=== PATIENT | female | born 1965 | race Hispanic/Latino ===

== ENCOUNTER 2025-02-07 14:31 | Emergency (ER) | payer SELFPAY ==
[2025-02-07 15:29] LABS: Absolute Lymphocytes (CBC) 1.4 K/uL (0.7-4.9); Hematocrit 37.9 % (36.0-45.0); Hemoglobin 13.0 g/dL (12.0-15.0); MCH 28.6 pg (27.0-35.0); MCHC 34.3 g/dL (32.0-36.0); MCV 83.5 fL (80-100); MPV 8.4 fL (7.6-11.3); Nucleated RBC Absolute Count 0.0 (0-0); Nucleated Red Blood Cells % 0.0 % (0-0); RBC Red Blood Cell Count 4.54 M/uL (3.86-4.86); White Blood Count 5.70 thou/uL (4.3-10.9)
[2025-02-07 15:45] LABS: PT Prothrombin Time 12.5 SECONDS (10-13.0); Protime INR 1.11
[2025-02-07 15:57] LABS: ALT/SGPT 28 U/L (13-56); AST/SGOT 17 U/L (15-37); Albumin 3.4 g/dL (3.4-5.0); Albumin/Globulin Ratio 1.0 (1.1-1.8); Alkaline Phosphatase 117 U/L (45-117); Anion Gap 8.8 mEq/L (5.0-15.0); BUN Blood Urea Nitrogen 11 mg/dL (7-18); Globulin 3.4 g/dL (2.3-3.5); Glucose Level 110 mg/dL (74-106); Magnesium 1.7 mg/dL (1.6-2.4); NT PRO-BNP 57 pg/mL (<125); Potassium 3.8 mEq/L (3.5-5.1)
[2025-02-07 16:19] LABS: Bilirubin Indirect, Calculated 0.0 mg/dL (0.2-0.8); Troponin High Sensitivity < 3.0 pg/mL (<58.9)
--- NOTE | 2025-02-07 16:41 | RAD REPORT ---
EXAM: CT brain without contrast HISTORY: seizure;Syncope COMPARISON: None TECHNIQUE: Multiple contiguous axial images were obtained and a CT of the brain without contrast. Sag ittal and coronal reformats were performed. FINDINGS: No evidence of hydrocephalus, intracranial hemorrhage, or extra-axial fluid collection. Numerous juxtacortical foci of calcification and a single focus of calcification along the right ant erior margin of the medulla. No evidence of acute territorial infarct. Sequelae of sandra hole craniotomy along the right frontal region anteriorly with underlying mild focal encephalomalacia. The calvarium is intact. The visualized paranasal sinuses and mastoid air cells are essentially clear . IMPRESSION: No evidence of acute intracranial abnormality. Numerous calcific foci predominantly in the juxtacortical regions, could reflect sequelae of remote i nfectious process such as neurocysticercosis. No focal edema or mass effect. EXAM: CT of the cervical spine without contrast HISTORY: seizure;Syncope COMPARISON: None TECHNIQUE: Multiple contiguous axial images were obtained in a CT of the cervical spine without contr ast. Sagittal and coronal reformats were performed. FINDINGS: The vertebral bodies demonstrate normal height and alignment. No evidence of acute fracture or subluxation.. No degenerative changes are present. No prevertebral soft tissue swelling is seen. The posterior facets are well aligned. Normal alignment of the skull base with the cervical spine is seen. The lung apices are unremarkable. IMPRESSION: No evidence of acute osseous abnormality of the cervical spine.
--- NOTE | 2025-02-07 16:42 | RAD REPORT ---
EXAMINATION: ONE VIEW CHEST XR CLINICAL INDICATION: Female, 59 years old.,syncope TECHNIQUE: Frontal chest projection is submitted. Examination is limited by patient positioning and t echnique. COMPARISON: No prior exam. FINDINGS: The lungs are well inflated and clear. No pneumothorax or sizable effusion. The heart is normal in s ize. Mediastinal contours are unremarkable. IMPRESSION: No acute intrathoracic abnormalities.
[2025-02-07] MEDS ORDERED: LORAZEPAM 1 MG TABLET ONE (17:23)
--- NOTE | 2025-02-07 17:23 | EDPHYS ---
Physician Documentation [facility] Name: Adelaida Vincent Age: 59 yrs Sex: Female : 1965 Arrival Date: 02/07/2025 Time: 14:31 Bed 8 Private MD: ED Physician Zheng Bearden HPI: 02/07 14:45 This 59 yrs old Female presents to ER via EMS with complaints of Seizure. cp Historical: - Allergies: 14:39 No Known Allergies; me1 - PMHx: 14:39 Seizure; me1 - PSHx: 14:39 brain surgery; me1 - Immunization history:: Adult Immunizations up to date. - Infectious Disease History:: Denies. - Social history:: Smoking status: Patient denies any tobacco usage or history of. ROS: 14:50 Constitutional: Negative for body aches, chills, fever, poor PO intake, cp 14:50 Neuro: Positive for history of seizure, cp Exam: 15:33 ECG was reviewed by the Attending Physician. cp Vital Signs: 14:36 BP 141 / 81; Pulse 80; Resp 18; Temp 97.5; Pulse Ox 98% ; Weight 77.5 kg; Height 5 ft. me1 3 in. ; Pain 7/10; 15:00 BP 140 / 80; Pulse 69; Resp 16; Pulse Ox 98% ; me1 16:00 BP 138 / 81; Pulse 64; Resp 17; Pulse Ox 98% ; me1 17:00 BP 140 / 82; Pulse 66; Resp 17; Pulse Ox 98% ; me1 17:30 BP 140 / 82; Pulse 66; Resp 17; Temp 98.2; Pulse Ox 99% ; me1 14:36 Body Mass Index 30.27 (77.50 kg, 160.02 cm) me1 14:36 Pain Scale: Adult me1 MDM: 14:38 Medical Screening Exam initiated cp 02/07 14:44 Order name: Basic Metabolic Panel; Complete Time: 16:51 cp 02/07 16:51 Interpretation: Normal except: CL 109; GLUC 110; GFR 76; CA 8.4. cp 02/07 14:44 Order name: CBC with Diff; Complete Time: 16:51 cp 02/07 14:44 Order name: LFT's; Complete Time: 16:51 cp 02/07 17:14 Interpretation: Normal except: IBILI, CALC 0.0; A/G 1.0. cp 02/07 14:44 Order name: Magnesium; Complete Time: 16:51 cp 02/07 14:44 Order name: NT PRO-BNP; Complete Time: 16:51 cp 02/07 14:44 Order name: PT-INR; Complete Time: 16:51 cp 02/07 14:44 Order name: Troponin HS; Complete Time: 16:51 cp 02/07 14:44 Order name: UA Rfx Omhan Cult if indicated cp 02/07 14:44 Order name: XRAY Chest (1 view); Complete Time: 16:51 cp 02/07 14:44 Order name: CT Head C Spine; Complete Time: 16:51 cp 02/07 17:15 Interpretation: Reviewed report. 02/07 14:44 Order name: EKG; Complete Time: 14:45 cp 02/07 14:44 Order name: Cardiac monitoring; Complete Time: 15:33 cp 02/07 14:44 Order name: EKG - Nurse/Tech; Complete Time: 15:33 cp 02/07 14:44 Order name: IV Saline Lock; Complete Time: 15:23 cp 02/07 14:44 Order name: Labs collected and sent; Complete Time: 15:23 cp 02/07 14:44 Order name: O2 Per Protocol; Complete Time: 14:58 cp 02/07 14:44 Order name: O2 Sat Monitoring; Complete Time: 14:58 cp EC:33 Rate is 70 beats/min. Rhythm is regular. [place] interval is normal. QRS interval is normal. cp QT interval is normal. T waves are Inverted in lead aVR. Interpreted by me. Reviewed by me. Administered Medications: 17:28 Drug: LORazepam PO 1 mg PO once Route: PO; me1 17:29 Follow up: Response: No adverse reaction me1 Disposition: 02/08 07:56 Co-signature as Attending Physician, Zheng Bearden MD I agree with the assessment and consuelo plan of care. Disposition Summary: 02/07/25 17:23 Discharge Ordered Notes: Location: Home cp Problem: an acute exacerbation cp Symptoms: have improved cp Condition: Stable cp Diagnosis - Other seizures cp Followup: cp - With: Private Physician - When: 2 - 3 days - Reason: Worsening of condition Discharge Instructions: - Discharge Summary Sheet cp - Seizure, Adult cp Forms: - Medication Reconciliation Form cp - Antibiotic Education cp - Prescription Opioid Use cp - Patient Portal Instructions cp - Leadership Thank You Letter cp Signatures: Dispatcher [employer] Zheng Braxton MD MD cha Page, Corey, PA-C PA-C cp Eddleman, Michelle, RN RN me1 Corrections: (The following items were deleted from the chart) 02/07 17:22 17:22 This 59 yrs old Female presents to ER via EMS with complaints of cp Seizure. cp
--- NOTE | 2025-02-07 17:23 | ER ---
Nurse's Notes [facility] Name: Adelaida Vincent Age: 59 yrs Sex: Female : 1965 Arrival Date: 02/07/2025 Time: 14:31 Bed 8 Private MD: Diagnosis: Other seizures Presentation: 02/07 14:36 Chief complaint: EMS states: toned out for syncopal episode while shopping, hit the me1 back of her head on the floor, possible seizure. Does have a hx of seizures and brain surgery for "water on the brain" per . BGL 107, NSR. Takes Keppra 1000mg. Coronavirus screen: Vaccine status: Patient reports being unvaccinated. Ebola Screen: No symptoms or risks identified at this time. Initial Sepsis Screen: Does the patient meet any 2 criteria? No. Patient's initial sepsis screen is negative. Does the patient have a suspected source of infection? No. Patient's initial sepsis screen is negative. Risk Assessment: Do you want to hurt yourself or someone else? Patient reports no desire to harm self or others. Onset of symptoms was February 07, 2025 at 14:00. 14:36 Method Of Arrival: EMS: [facility] mt1 14:36 Acuity: JIL 3 me1 Triage Assessment: 14:39 General: Appears in no apparent distress. uncomfortable, well groomed, well developed, me1 well nourished, Behavior is calm, cooperative, appropriate for age. Pain: Complains of pain in back of head Pain does not radiate. Pain currently is 7 out of 10 on a pain scale. Quality of pain is described as aching, Pain began suddenly, Is continuous. EENT: No signs and/or symptoms were reported regarding the EENT system. Neuro: Level of Consciousness is awake, alert, obeys commands, Oriented to person, place, time, situation, Appropriate for age. Neuro: Reports a syncopal episode Seizure activity reported prior to arrival. Cardiovascular: Patient's skin is warm and dry. Respiratory: Respiratory: Airway is patent Respiratory effort is even, unlabored, Respiratory pattern is regular, symmetrical. GI: No signs and/or symptoms were reported involving the gastrointestinal system. : No signs and/or symptoms were reported regarding the genitourinary system. Derm: Skin is intact, is healthy with good turgor, Skin is normal. Musculoskeletal: Circulation, motion, and sensation intact. Range of motion: intact in all extremities. Historical: - Allergies: 14:39 No Known Allergies; me1 - PMHx: 14:39 Seizure; me1 - PSHx: 14:39 brain surgery; me1 - Immunization history:: Adult Immunizations up to date. - Infectious Disease History:: Denies. - Social history:: Smoking status: Patient denies any tobacco usage or history of. Screenin:41 [facility] ED Fall Risk Assessment (Adult) History of falling in the last 3 months, me1 including since admission Yes- physiologic fall (2 pts) Confusion or Disorientation No (0 pts) Intoxicated or Sedated No (0 pts) Impaired Gait No (0 pts) Mobility Assist Device Used No (0 pt) Altered Elimination No (0 pt) Score/Fall Risk Level 0 - 2 = Low Risk Maintained a safe environment, Provided non-skid footwear, Hourly rounding (assess needs \\T\\ fall precautionary measures) done. Abuse screen: Denies threats or abuse. Nutritional screening: No deficits noted. Tuberculosis screening: No symptoms or risk factors identified. Assessment: 14:41 General: See triage assessment. me1 Vital Signs: 14:36 BP 141 / 81; Pulse 80; Resp 18; Temp 97.5; Pulse Ox 98% ; Weight 77.5 kg; Height 5 ft. me1 3 in. ; Pain 7/10; 15:00 BP 140 / 80; Pulse 69; Resp 16; Pulse Ox 98% ; me1 16:00 BP 138 / 81; Pulse 64; Resp 17; Pulse Ox 98% ; me1 17:00 BP 140 / 82; Pulse 66; Resp 17; Pulse Ox 98% ; me1 17:30 BP 140 / 82; Pulse 66; Resp 17; Temp 98.2; Pulse Ox 99% ; me1 14:36 Body Mass Index 30.27 (77.50 kg, 160.02 cm) me1 14:36 Pain Scale: Adult me1 ED Course: 14:35 Patient arrived in ED. me1 14:37 Zheng Bhatia PA-C is [facility]. cp 14:38 Zheng Bearden MD is Attending Physician. cp 14:39 Triage completed. me1 14:39 Arm band placed on Patient placed in an exam room. me1 14:41 Patient has correct armband on for positive identification. Bed in low position. Call me1 light in reach. Side rails up X2. Provided Education on: POC. Verbalized understanding.. Client placed on continuous cardiac and pulse oximetry monitoring. NIBP monitoring applied. cyber security instructor on. Pulse ox on. NIBP on. 14:41 No provider procedures requiring assistance completed. me1 14:58 Sarah Guerrero, RN is Primary Nurse. me1 14:58 CT Head C Spine In Process Unspecified. EDMS 15:09 XRAY Chest (1 view) In Process Unspecified. EDMS 15:23 Initial lab(s) drawn, by me, sent to lab. Inserted saline lock: 22 gauge in right [facility] antecubital area, using aseptic technique. 15:23 Basic Metabolic Panel Sent. me1 15:23 CBC with Diff Sent. me1 15:23 LFT's Sent. me1 15:23 Magnesium Sent. me1 15:23 NT PRO-BNP Sent. me1 15:23 PT-INR Sent. me1 15:23 Troponin HS Sent. me1 15:33 EKG done, by ED staff, reviewed by Zheng Bhatia PA-C. me1 17:34 IV discontinued, intact, bleeding controlled, No redness/swelling at site. Pressure me1 dressing applied. Administered Medications: 17:28 Drug: LORazepam PO 1 mg PO once Route: PO; me1 17:29 Follow up: Response: No adverse reaction me1 Medication: 14:41 VIS not applicable for this client. me1 Outcome: 17:23 Discharge ordered by . crystal 17:34 Discharged to home ambulatory, with significant other, me1 17:34 Condition: stable 17:34 Discharge instructions given to patient, significant other, Instructed on discharge instructions, follow up and referral plans. Demonstrated understanding of instructions, follow-up care, 17:35 Patient left the ED. me1 Signatures: Dispatcher [employer] Zheng Silva PA-C PA-C cp Eddleman, Michelle, RN RN me1
[2025-02-07 22:26] VITALS: BP 140/82
[2025-02-07 22:27] VITALS: TEMP 98.2; O2SAT 99
== END 2025-02-07 17:35 | disposition home or self-care (01) ==
LOC: ER 14:31
DX: G40.89 Other seizures (principal)
CPT/HCPCS: 36415; 70450; 71045; 72125; 80048; 80076; 83735; 83880; 84484; 85025; 85610; 93005; 99285